=== PATIENT | male | born 1985 | race African-American/Black ===

== ENCOUNTER 2017-01-04 12:42 | Emergency (ER) | payer SELFPAY ==
[~2017-01-04] VITALS: Ht 167.6 cm; Wt 71.0 kg
== END 2017-01-04 14:34 | disposition home or self-care (01) ==
LOC: CED 12:42 → CFTX 12:42
DX: M54.5 Low back pain (principal); G89.29 Other chronic pain; K64.4 Residual hemorrhoidal skin tags; F17.210 Nicotine dependence, cigarettes, uncomplicated
CPT/HCPCS: 99283

== ENCOUNTER 2017-01-09 22:03 | Emergency (ER) | payer SELFPAY ==
[~2017-01-09] VITALS: Ht 165.1 cm; Wt 73.0 kg
== END 2017-01-09 23:15 | disposition home or self-care (01) ==
LOC: CED 22:03 → CFTX 22:03
DX: K64.9 Unspecified hemorrhoids (principal); F17.210 Nicotine dependence, cigarettes, uncomplicated
CPT/HCPCS: 99283